=== PATIENT | female | born 1985 | race American Indian/Alaskan Native ===

== ENCOUNTER 2020-12-17 03:11 | Outpatient (CLI) | payer MEDICAID, OTHER ==
[2020-12-17 03:40] VITALS: BP 118/70
[2020-12-17] MEDS ORDERED: LACTATED RINGERS 1,000 ML IV ONE (04:07)
[2020-12-17] MEDS ORDERED: LACTATED RINGERS 1,000 ML ONE (04:19)
[2020-12-17 05:22] LABS: Amphetamine Screen,Urine PRESUMPTIVE NEGATIVE; Benzodiazepines Screen,Urine PRESUMPTIVE NEGATIVE; Cannabinoid Screen,Urine PRESUMPTIVE POSITIVE; Cocaine Screen,Urine PRESUMPTIVE NEGATIVE; Methadone Screen,Urine PRESUMPTIVE NEGATIVE; Opiate Screen,Urine PRESUMPTIVE NEGATIVE
[2020-12-17 05:36] LABS: Bacteria,Urine 2+ /HPF (Negative); Mucus,Urine FEW /HPF
[2020-12-17 05:43] LABS: Bilirubin,Urine NEG (Negative); Blood,Urine SM (Negative); Color,Urine Yellow (Yellow); Protein,Urine <15 mg/dL mg/dL (Negative); Urobilinogen,Urine < 2.0 mg/dL (<2.0)
[2020-12-17] MEDS ORDERED: TERBUTALINE 1 MG/1 ML INJ SUB-Q ONE (06:10)
--- NOTE | 2020-12-17 06:30 | Event Note ---
Date: 12/17/20 (Triage) 35yo L3 @ 34weeks Pt moved to [place] from [facility] a week or so ago. Pt gives OB hx of cerclage x3 She has had 3 early losses. Last delivery 2018. She does give hx of OB care with this in [facility] Will sign ALEXA for records. Amnisure negative SVE closed, long, -3. Cervix feels scared. CTX Q8-15 min Will give Terb series. UDS +MJ Pt aware and counseled. Will continue to monitor. Diet. List of local OB providers given to pt.
[2020-12-17] MEDS ORDERED: TERBUTALINE 1 MG/1 ML INJ SUB-Q SCH (07:30)
== END 2020-12-17 08:02 | disposition home or self-care (01) ==
LOC: TRG 03:11 → APU 03:13 → TRG 08:02
PROVIDERS: ATTEND Obstetrics & Gynecology
DX: O62.9 Abnormality of forces of labor, unspecified (principal); O42.913 Preterm premature rupture of membranes, unspecified as to length of time between rupture and onset of labor, third trimester; O26.893 Other specified pregnancy related conditions, third trimester; R10.9 Unspecified abdominal pain; Z3A.34 34 weeks gestation of pregnancy
CPT/HCPCS: 36415; 59025; 80307; 81001; 84112; 87076; 87086; 87186; 96372; J3105; J7120; 96360